=== PATIENT | female | born 1975 | race African-American/Black ===

== ENCOUNTER 2022-04-04 19:43 | Emergency (ER) | payer MEDICAID, OTHER ==
[~2022-04-04] VITALS: Ht 160 cm; Wt 62.0 kg
[2022-04-04] MEDS ORDERED: BACITRACIN ZINC OINT UDPKT TOP ONE (20:30)
[2022-04-04] MEDS ORDERED: LIDOCAINE HCL/PF 1% 10 MG/ML 5ML VIAL INFIL ONE (20:30)
[2022-04-04] MEDS ORDERED: HYDROCODONE/ACETAMINOPHEN 5/325MG TABLET PO ONE (22:15)
[2022-04-04] MEDS ORDERED: MORPHINE SULFATE 10 MG/ML CPJ IM ONE (22:45)
[2022-04-04 22:58] VITALS: BP 121/77
== END 2022-04-04 23:29 | disposition home or self-care (01) ==
LOC: ER 19:43
DX: S68.125A Partial traumatic metacarpophalangeal amputation of left ring finger, initial encounter (principal); I10 Essential (primary) hypertension; W26.0XXA Contact with knife, initial encounter; Y93.G3 Activity, cooking and baking; Y92.89 Other specified places as the place of occurrence of the external cause
CPT/HCPCS: 12001; 96372; 99283; J2270; J3490

== ENCOUNTER 2022-04-11 14:26 | Emergency (ER) | payer MEDICAID ==
[~2022-04-11] VITALS: Ht 157.5 cm; Wt 67.0 kg
[2022-04-11 14:53] VITALS: BP 123/64
== END 2022-04-11 16:08 | disposition home or self-care (01) ==
LOC: ER 14:26
DX: Z48.02 Encounter for removal of sutures (principal); I10 Essential (primary) hypertension
CPT/HCPCS: 99281